=== PATIENT | male | born 1955 | race Caucasian/White ===

== ENCOUNTER 2020-03-01 09:20 | Outpatient (CLI) | payer OTHER, SELFPAY ==
--- NOTE | ~2020-03-01 | XR_ITS ---
XR chest 2V DATE: 03/01/2020 09:39 INDICATION: Dry cough TECHNIQUE: PA and lateral views COMPARISON: 09/10/2018 PA and lateral chest FINDINGS: Normal heart size. Mild aortic unfolding. No hilar or mediastinal enlargement. No pulmonary infiltrate or consolidation, pleural effusion or pulmonary vascular congestion or pneumothorax. Incl uded skeletal structures are unremarkable. IMPRESSION: No active cardiopulmonary disease Reviewed, dictated and finalized at location A.
[2020-03-01 10:46] LABS: Influenza Control Positive
== END 2020-03-01 09:21 | disposition home or self-care (01) ==
PROVIDERS: PCP Internal Medicine; Visit Provider Internal Medicine
DX: R68.89 Other general symptoms and signs (principal); R05 Cough; Z86.19 Personal history of other infectious and parasitic diseases
CPT/HCPCS: 71046; 87804

== ENCOUNTER 2020-03-09 11:05 | Outpatient (CLI) | payer OTHER, SELFPAY ==
--- NOTE | ~2020-03-09 | XR_ITS ---
EXAMINATION: XR chest 2V DATE: 03/09/2020 11:27 INDICATION: Shortness of breath. Cough. TECHNIQUE: Frontal and lateral views of the chest were obtained. COMPARISON: Chest 2 views 03/01/2020 FINDINGS: The chest demonstrates clear lungs without pneumonia, pleural effusion, or pneumothorax. Th e heart size is normal. IMPRESSION: 1. No acute cardiopulmonary disease. Reviewed, dictated and finalized at location A.
[2020-03-09 11:43] LABS: Basophils Percent Auto 0.5 % (0.2-1.2); Eosinophils Absolute Auto 0.2 K/mm3 (0-0.3); Hematocrit 46.5 % (42.0-52.0); Hemoglobin 15.8 g/dL (14.0-18.0); Immature Granulocyte Absolute 0.02 K/mm3 (0.00-0.031); Immature Granulocyte Percent A 0.3 % (0-0.5); Lymphocytes Absolute Auto 1.14 K/mm3 (0.9-3.2); Lymphocytes Percent Auto 15.6 % (18.3-44.2); Mean Corpuscular Hemoglobin 29.1 pg (26-34); Mean Corpuscular Volume 85.6 fl (80-100); Mean Platelet Volume 10.4 fl (7.4-10.4); Monocytes Absolute Auto 0.7 K/mm3 (0.1-0.6); Neutrophils Absolute Auto 5.3 K/mm3 (1.3-6.7); Neutrophils Percent Auto 71.6 % (45.5-73.1); Platelet Count Result 149 k/mm3 (150-375); Red Blood Count 5.43 M/mm3 (4.6-6.20); Red Cell Distribution Width 12.5 % (11.5-14.5); White Blood Count 7.3 K/mm3 (4.5-10.0)
== END 2020-03-09 11:06 | disposition home or self-care (01) ==
PROVIDERS: PCP Internal Medicine; Visit Provider Internal Medicine
DX: R06.02 Shortness of breath (principal); R05 Cough
CPT/HCPCS: 36415; 71046; 85025

== ENCOUNTER → 2021-10-17 07:30 | Outpatient (CLI) | payer OTHER, SELFPAY ==
[2021-10-17 13:21] LABS: Influenza Control Positive
[2021-10-18 13:55] LABS: SARS-CoV-2 RNA PCR Positive
== END ==
PROVIDERS: PCP Internal Medicine; Visit Provider Internal Medicine
DX: U07.1 COVID-19 (principal)
CPT/HCPCS: 87804; C9803; U0003; U0005

== ENCOUNTER → 2021-11-18 10:13 | Outpatient (CLI) | payer OTHER, SELFPAY ==
--- NOTE | ~2021-11-18 | US_ITS ---
EXAMINATION: US thyroid DATE: 11/18/2021 10:45 INDICATION: Nontoxic single thyroid nodule. TECHNIQUE: Multiple ultrasound images of the thyroid were obtained. COMPARISON: None. FINDINGS: The right thyroid lobe measures 3.9 x 1.8 x 1.5 cm. The left thyroid lobe measures 4.4 x 2.0 x 1.4 c m. In the left thyroid lobe, there is a 2.0 cm predominantly solid, hypoechoic, [id number]-hriw-qimw nodu le with smooth margin without echogenic foci (TI-RADS TR4). IMPRESSION: 1. Left thyroid nodule. Ultrasound-guided fine-needle aspiration is recommended. Reviewed, dictated and finalized at location E. RINARY TECHNICIAN ASSISTANT IMPRESSION: 1. Left thyroid nodule. Ultrasound-guided fine-needle aspiration is recommended .
== END ==
PROVIDERS: PCP Internal Medicine; Visit Provider Internal Medicine
DX: E04.1 Nontoxic single thyroid nodule (principal)
CPT/HCPCS: 76536

== ENCOUNTER 2021-12-05 09:05 | Outpatient (CLI) | payer OTHER, SELFPAY ==
--- NOTE | ~2021-12-05 | US_ITS ---
EXAMINATION: US FNA w image guidance DATE: 12/05/2021 10:05 INDICATION: Left thyroid nodule TECHNIQUE: A time-out was performed to verify the patient's name, date of , and procedure to be performed . The procedure and its benefits and risks were discussed with the patient. Risks specifically discus sed included bleeding and infection. The patient understood the risks and agreed to proceed. The neck was prepped and draped in the usual sterile manner. 3 mL 1% lidocaine was used for local anesthesia . 6 passes were made with a 25G needle into the lesion. Appropriate needle location was documented with continuous sonographic guidance. The specimens were passed to the instructional technologist in the room. A sterile bandage was applied. There were no immediate complications. FINDINGS: Grayscale ultrasound images demonstrate biopsy needles advanced into a 1.6 cm solid TI RADS 4 left th yroid nodule. IMPRESSION: 1. Successful ultrasound-guided fine needle aspiration of a 1.6 cm TI RADS 4 left thyroid nodule. Reviewed, dictated and finalized at location A. F INFORMATION SECURITY OFFICER IMPRESSION: 1. Successful ultrasound-guided fine needle aspiration of a 1.6 cm TI RADS 4 l eft thyroid nodule.
== END 2021-12-05 09:06 | disposition home or self-care (01) ==
PROVIDERS: PCP Internal Medicine; Visit Provider Otolaryngology
DX: E04.1 Nontoxic single thyroid nodule (principal)
CPT/HCPCS: 10005; 88173; 88305

== ENCOUNTER → 2022-12-28 10:01 | Outpatient (CLI) | payer MEDICARE, SELFPAY ==
--- NOTE | ~2022-12-28 | XR_ITS ---
Clinical Indication: Cough PA and lateral views of the chest: Comparison: 03/09/2020 Findings: The lungs are clear, without evidence of focal consolidation or pleural effusion. Cardiome diastinal silhouette is within normal limits. Bones and soft tissues are unremarkable. Impression: Normal chest. Reviewed, dictated and finalized at [facility]. Impression: Normal chest.
== END ==
PROVIDERS: PCP Internal Medicine; Visit Provider Internal Medicine
DX: R05.9 Cough, unspecified (principal)
CPT/HCPCS: 71046

== ENCOUNTER 2023-05-11 08:40 | Outpatient (CLI) | payer MEDICARE, SELFPAY ==
--- NOTE | ~2023-05-11 | US_ITS ---
EXAMINATION: US retroperitoneal duplex ltd DATE: 05/11/2023 09:55 INDICATION: Essential/primary hypertension TECHNIQUE: Multiple grayscale, color Doppler, and pulsed Doppler images of the kidneys and renal xena shyanne were obtained. COMPARISON: None. FINDINGS: The aorta peak systolic velocity is 44 cm/s. The right renal artery peak systolic velocity is 98 cm/s in the proximal segment, 208 cm/s in the mid segment, and 86 cm/s in the distal segment. The left re nal artery peak systolic velocity is 52 cm/s in the proximal segment, 69 cm/s in the mid segment, and 108 cm/s in the distal segment. IMPRESSION: 1. Elevated peak systolic velocities in the mid right renal artery consistent with a >50-60% stenosi s. Reviewed, dictated and finalized at location A. IMPRESSION: 1. Elevated peak systolic velocities in the mid right renal artery consistent with a >50-60% stenosis.
== END 2023-05-11 08:41 | disposition home or self-care (01) ==
PROVIDERS: PCP Internal Medicine; Visit Provider Internal Medicine
DX: I10 Essential (primary) hypertension (principal); R93.89 Abnormal findings on diagnostic imaging of other specified body structures
CPT/HCPCS: 93976

== ENCOUNTER → 2023-05-22 09:49 | Outpatient (CLI) | payer MEDICARE, SELFPAY ==
--- NOTE | ~2023-05-22 | CT_ITS ---
EXAMINATION: CTA abdomen DATE: 05/22/2023 10:12 INDICATION: Hypertension. TECHNIQUE: Computed tomographic angiography (CTA) of the abdomen was performed with 100 mL Omnipaque- 350 intravenous contrast. Automated exposure control and iterative reconstruction technique were empl oyed. The dose-length product was 591.91 mGy-cm. Maximum intensity projection 3D-reconstructions of t he aorta and other arteries were constructed by the technologist on a separate workstation. COMPARISON: Ultrasound 05/11/2023, CT abdomen and pelvis 10/21/13 FINDINGS: The visualized portions of the lung bases demonstrate mild atelectasis. No pleural effusion . The heart size is normal. No pericardial effusion. There are cysts in the liver measuring up to 2.0 cm. The gallbladder, spleen, pancreas, and adrenal glands are normal. There are cysts in the kidneys measuring up to 1.0 cm on the left. There is cortical thinning of left kidney. There is a 1.5 cm mas s in left kidney measuring soft tissue attenuation. There are no dilated loops of bowel. There is div erticulosis of the colon without evidence of diverticulitis. No pathologically enlarged lymph nodes. Aortic atherosclerosis is noted. There is no significant stenosis or central canal stenosis, superior mesenteric artery, inferior mesenteric artery, or the renal arteries. There is mild cervical spondyl osis. IMPRESSION: 1. No significant renal artery stenosis. 2. 1.5 cm left kidney mass, which may be a hemorrhagic cyst or less likely a neoplasm. Abdomen CT or MRI without and with contrast is recommended. Reviewed, dictated and finalized at location A. IMPRESSION: 1. No significant renal artery stenosis. 2. 1.5 cm left kidney mass, which may be a hemorrhagic cyst or less likely a ne oplasm. Abdomen CT or MRI without and with contrast is recommended.
[2023-05-22 10:03] LABS: Estimated Glomerular Filt Rate 51
== END ==
PROVIDERS: PCP Internal Medicine; Visit Provider Internal Medicine
DX: I70.1 Atherosclerosis of renal artery (principal)
CPT/HCPCS: 74175; Q9967

== ENCOUNTER → 2023-05-29 08:56 | Outpatient (CLI) | payer MEDICARE, SELFPAY ==
--- NOTE | ~2023-05-29 | CT_ITS ---
EXAMINATION: CT abdomen wo/w con INDICATION: Left kidney mass TECHNIQUE: Computed tomographic images of the abdomen were obtained prior to then following after the administration of 100 cc of Omnipaque 350 intravenous contrast. The dose-length product (DLP) was 12 35.07 mGy-cm. Automated exposure control and iterative reconstruction technique were employed. COMPARISON: 05/22/2023 FINDINGS: Minimal dependent atelectasis is present in the lung bases. The heart size is normal. Cysts of the liver measure up to 2 cm. The spleen, pancreas, gallbladder, and adrenal glands are normal. T here is a 1.7 cm hyperdense, nonenhancing left kidney mass. There is cortical thinning of the left ki dney. Simple cysts of the kidneys measure up to 1 cm on the left. There are no pathologically enlarge d abdominal lymph nodes. No free intraperitoneal gas or evidence of bowel obstruction. IMPRESSION: 1. Hemorrhagic cyst of the left kidney corresponding to the mass and question on recent CT. Reviewed, dictated and finalized at location L. IMPRESSION: 1. Hemorrhagic cyst of the left kidney corresponding to the mass and question o n recent CT.
== END ==
PROVIDERS: PCP Internal Medicine; Visit Provider Internal Medicine
DX: N28.89 Other specified disorders of kidney and ureter (principal); N28.1 Cyst of kidney, acquired
CPT/HCPCS: 74170; Q9967

== ENCOUNTER → 2023-07-06 15:05 | Outpatient (CLI) | payer MEDICARE, SELFPAY ==
--- NOTE | ~2023-07-06 | XR_ITS ---
XR shoulder RT min 2V DATE: 07/06/2023 15:22 INDICATION: Right shoulder TECHNIQUE: 4 views COMPARISON: None FINDINGS: There is mild degenerative change and inferior spurring at the right acromioclavicular join t. No fracture or dislocation, periosteal reaction or bone destruction or abnormal soft tissue calcifica tion. IMPRESSION: Mild degenerative change Reviewed, dictated and finalized at location A. IMPRESSION: Mild degenerative change
== END ==
PROVIDERS: PCP Internal Medicine; Visit Provider Family Medicine
DX: M19.011 Primary osteoarthritis, right shoulder (principal)
CPT/HCPCS: 73030

== ENCOUNTER 2023-08-16 13:32 | Outpatient (CLI) | payer MEDICARE, SELFPAY ==
--- NOTE | ~2023-08-16 | XR_ITS ---
EXAMINATION: XR fl inj shoulder RT - MR/CT DATE: 08/16/2023 14:51 INDICATION: Right shoulder pain TECHNIQUE: A time-out was performed to verify the patient's name, date of , and procedure to b e performed. The procedure including the risks, benefits, and alternatives was discussed with the pat ient. Risks discussed included bleeding and infection. The patient understood the risks and agreed to proceed. The skin overlying the rotator cuff interval of the right glenohumeral joint was prepped a nd draped in usual sterile fashion. Anesthetic was administered with 1% lidocaine subcutaneously. A 22 G needle was advanced under fluoroscopic guidance into the joint. Injection of 2 mL of Omnipaque 240 confirmed intra-articular position of the needle. Subsequently, injectate consisting of 12 mL o f 2:1:1 mixture of sterile saline:Omnipaque 240:1% lidocaine mixed 200:1 with 529 mg/mL Multihance ga dolinium contrast was injected with intra-articular administration confirmed with intermittent fluoro scopy. The needle was removed and the entry site was cleaned and dressed. There were no immediate co mplications. Fluoroscopy exposure time was 0.7 minutes. The total number of images was 129. FINDINGS: Real-time fluoroscopy demonstrates the needle in the right glenohumeral joint. There is a m inimal amount of extravasation into the cephalad margin of the subscapularis tendon at the site of in jection. There is small amount of contrast imbibition into the distal supraspinatus tendon consistent with articular sided tear. See separate MR arthrogram report for further detail. IMPRESSION: 1. Successful right glenohumeral joint injection of dilute gadolinium contrast mixture for subsequent MRI arthrogram which will be dictated separately. . Reviewed, dictated and finalized at location A.
--- NOTE | ~2023-08-16 | MR_ITS ---
EXAMINATION: MR shoulder RT w con DATE: 08/16/2023 15:48 INDICATION: Right shoulder pain TECHNIQUE: Magnetic resonance (MR) arthrogram of the right shoulder was performed following intra-ar ticular gadolinium contrast injection and without intravenous contrast. Details of the glenohumeral j oint injection have been dictated separately. Sequences included axial T2-weighted FS FSE, axial T1- weighted FS FSE, coronal oblique T1-weighted FS FSE, coronal oblique T2-weighted FSE, sagittal T2-jacquelin ghted FS FSE, sagittal T1-weighted FSE, and ABER (abduction external rotation) T1-weighted FS FSE. COMPARISON: Radiographs dated 08/05/2023 FINDINGS: Coracoacromial arch: The acromion undersurface is curved in morphology (type II). The coracoacromial ligament is normal. M ild to moderate acromioclavicular osteoarthritis with mild subarticular cystlike changes at the later al head of the clavicle. Rotator cuff: Moderate supraspinatus and infraspinatus tendinopathy. Contrast fills an intrasubstance tear defect w hich extends 1.8 cm AP at the distal aspect of the infraspinatus and posterior supraspinatus tendons. There is negligible separation of the discontiguous medial and lateral tear margins which are locate d at approximately 5 mm medial to the medial facet footplate of the tendons. The intrasubstance contr ast confirms involvement of the articular surface although a measurable articular sided tear defect i s not identified. There is only minimal intrasubstance contrast seen along the articular side of the tendon on the rotating cine fluoroscopic images taken immediately following the contrast injection see ggesting the articular component to the tear is relatively small. The intrasubstance portion of the t ear appears to involve in places at least two thirds of the tendon thickness. The teres minor tendon is normal. There is mild subscapularis tendinopathy. There is some intrasubstance contrast within the distal tendon. Normal rotator cuff muscle bulk and signal. Biceps tendon, glenoid labrum and glenohumeral cartilage: Long head of the biceps tendon is normal. There is likely chronic degeneration of the posterior gleno id labrum which has been partially replaced by marginal osteophytes at the periphery of the glenoid a nd labrum. There is additional degenerative tearing of the anterosuperior glenoid labrum which appear s small with frayed margins. There is mild partial-thickness cartilage loss with smooth chondral surf demetria along the anterosuperior and inferomedial aspect of the humeral head. Bones and other: Prominent low signal intensity bone island at the central neck of the glenoid. Otherwise normal marro w signal with no edema, fracture or abnormal marrow replacing process. Mild increased fluid signal wi thout contrast enhancement in the subacromial/subdeltoid bursa consistent with minimal bursitis. IMPRESSION: 1. Moderate supraspinatus and infraspinatus tendinopathy with primarily intrasubstance tear extending across the distal supraspinatus and infraspinatus tendons which enhances with contrast consistent wi th the presence of a small otherwise occult articular sided tear/perforation. 2. Mild glenohumeral osteoarthritis with posterior and anterosuperior labral degeneration. 3. Mild to moderate acromioclavicular osteoarthritis with minimal underlying subacromial/subdeltoid b ursitis. Reviewed, dictated and finalized at location A. IMPRESSION: 1. Moderate supraspinatus and infraspinatus tendinopathy with primarily intrasu bstance tear extending across the distal supraspinatus and infraspinatus tendon s which enhances with contrast consistent with the presence of a small otherwis e occult articular sided tear/perforation. 2. Mild glenohumeral osteoarthritis with posterior and anterosuperior labral de
== END 2023-08-16 13:33 | disposition home or self-care (01) ==
PROVIDERS: PCP Internal Medicine; Visit Provider Family Medicine
DX: M19.011 Primary osteoarthritis, right shoulder (principal)
CPT/HCPCS: 23350; 73222; 77002; A9577; Q9966

== ENCOUNTER 2023-12-27 09:05 | Outpatient (CLI) | payer MEDICARE, SELFPAY ==
--- NOTE | 2023-12-27 09:11 | ECG_ITS ---
Measurements Intervals [place] Rate: 52 P: 57 MO: 175 QRS: 44 QRSD: 102 T: 18 QT: 422 QTc: 395 Interpretive Statements SINUS BRADYCARDIA BORDERLINE ECG NO PREVIOUS ECG AVAILABLE FOR COMPARISON Electronically Signed On 12-27-2023 9:36:35 CDT by Oziel Ibarra D.O.
[2023-12-27 09:37] LABS: Anion Gap 3 mmol/L (8-16); Blood Urea Nitrogen 18 mg/dL (9-20); Calcium 9.5 mg/dL (8.4-10.2); Carbon Dioxide 30 mmol/L (22-30); Chloride 105 mmol/L (98-107); Estimated Glomerular Filt Rate > 60; Glucose 103 mg/dL (65-110); Potassium 4.4 mmol/L (3.4-5.0); Sodium 138 mmol/L (137-145)
== END 2023-12-27 09:06 | disposition home or self-care (01) ==
LOC: ANHSURGERY 09:07
PROVIDERS: Anesthesiology; PCP Internal Medicine; Visit Provider Orthopaedic Surgery
DX: Z01.818 Encounter for other preprocedural examination (principal); Z79.899 Other long term (current) drug therapy; I10 Essential (primary) hypertension; R00.1 Bradycardia, unspecified
CPT/HCPCS: 36415; 80048; 93005

== ENCOUNTER 2024-01-03 00:11 | Day surgery (SDC) | payer MEDICARE, SELFPAY ==
[2023-12-25 08:22] VITALS: BMI 29.5
--- NOTE | 2023-12-25 08:33 | PC.NURSE ---
PRE-OP INSTRUCTIONS, PLEASE READ CAREFULLY Report to the Outpatient Waiting Room, entrance under the green pavilion located off [facility], at time _0830_ on date _01/03/24_. Planned Procedure Time: _1030_. Time changes happen often and if your time is changed the preop area will call you the afternoon before. - You and your visitor will be asked to self-screen and do not enter if you have any COVID symptoms. - A mask is optional within the hospital at this time. Patients may have clear liquids (water, carbonated beverages, clear teas, apple juice) until 3 hours prior to surgery with a maximum of 20 ounces. - No food from midnight until time of surgery Take the following medications with a SIP of water the morning of surgery: _TRAMADOL IF NEEDED_ DO NOT STOP ANY OF YOUR OTHER PRESCRIPTION MEDICATIONS PRIOR TO SURGERY ?EXCEPT THE FOLLOWING Medications to discontinue per DR. PINEDA/PATIENT - _ASPIRIN, VITAMINS, SUPPLEMENTS 7 DAYS PRIOR TO SURGERY, Date to take last dose 12/26/23_ Please no make-up, nail bahraini, hairspray, perfume, deodorant, or body powder the day of surgery. No jewelry (including any body piercings) or valuables the day of surgery, leave them at home. Please take a shower or bath the night before, or the morning of, surgery with an antibacterial soap. Wear comfortable, loose fitting clothing. - Jewelry must be removed prior to entering the operating room. Rings and piercings that are not removed may be cut off. - The hospital will not accept responsibility for valuables. - Please leave all valuables, including medications, at home the day of surgery. If you are going home after surgery, a licensed garbage collector driver must drive you home. - NO public transportation without another adult if you receive anesthesia. - We recommend that an adult stay with you for 24 hours following discharge. - We also recommend that you do not drive, make important decision, drink alcoholic beverages, or take any drugs that were not prescribed by your health care provider for at least 24 hours after your discharge time. Follow any additional instructions given to you from your surgeon. If you or anyone in your household have experienced Covid symptoms in the past week, please notify your surgeon or the nurse liaison at the phone number below for possible testing. Telephone instructions given to _PATIENT_and asked if any additional questions and then verbalized understanding. Patient advised to call surgeon office or pre surgery nurse liaison [phone] if any additional questions.
--- NOTE | 2024-01-03 07:43 | WPDHPUPDATE1 ---
History and Physical Update Update Date/Time: 01/03/24 07:43 History and Physical has been reviewed, including an updated exam of the patient. There are NO changes in the patient's condition. Risks, benefits, and alternatives have been discussed and questions answered. Patient agrees to proceed with procedure.
[2024-01-03 08:45] VITALS: BP 168/93; PULSE 59; RESP 18; TEMP 36.4; O2SAT 98
[2024-01-03] MEDS: ACETAMINOPHEN 500 MG TABLET 1000 MG PO (09:28)
[2024-01-03] MEDS: KETOROLAC 15 MG/ML VIAL (*BKC) IV PUSH (09:28)
--- NOTE | 2024-01-03 09:49 | WPDANESEPPF ---
Anes - Initial Pre Proc Eval Procedure: Operation Date: 01/03/24 10:30 Proposed Procedures p Right Shoulder Arthroscopic Rotator Cuff Repair with Subacromial Decompression - Mateusz Chappell MD Date/Time: 01/03/24 09:49 Surgeon: Mateusz Chappell MD Pre Op Diagnosis: complete right rotator cuff tear Patient Data Age: 68 Gender: M Height: 1.88 m Weight: 108 kg Last Vital Signs Temp 36.4 C L 01/03/24 08:45 Pulse 59 L 01/03/24 08:45 Resp 18 01/03/24 08:45 BP 168/93 H 01/03/24 08:45 Pulse Ox 98 01/03/24 08:45 O2 Del Method Room Air 01/03/24 08:45 Allergies Allergy/AdvReac Type Severity Reaction Status Date / Time Sulfa (Sulfonamide Allergy Unknown Flushing Verified 12/25/23 08:14 Antibiotics) Home Medications Medication Instructions Recorded Confirmed Type aspirin 81 mg tablet,delayed 162 mg PO DAILY 02/06/20 01/03/24 History release (Adult Low Dose Aspirin) loratadine 10 mg tablet (Claritin) 10 mg PO DAILY 02/06/20 01/03/24 History niacin 500 mg capsule,extended 500 mg PO HS 02/06/20 01/03/24 History release omega-3 fatty acids 1,000 mg 2,000 mg PO DAILY 02/06/20 01/03/24 History capsule (Fish Oil Concentrate) cholecalciferol (vitamin D3) 25 25 mcg PO DAILY 06/25/20 01/03/24 History mcg (1,000 unit) capsule finasteride 5 mg tablet 5 mg PO DAILY 02/08/22 01/03/24 History vitamin E (dl, acetate) 450 mg 900 mg PO BID 05/01/23 01/03/24 History (1,000 unit) capsule metoprolol succinate 50 mg See Rx Instructions .Route 08/16/23 01/03/24 Rx tablet,extended release 24 hr .COMPLEX #90 tabs tramadol 50 mg tablet 50 mg PO Q4-6H PRN pain #120 tabs 09/14/23 01/03/24 Rx valsartan 320 See Rx Instructions .Route 10/04/23 01/03/24 Rx mg-hydrochlorothiazide 12.5 mg .COMPLEX #90 tabs tablet rosuvastatin 20 mg tablet See Rx Instructions .Route 10/18/23 01/03/24 Rx .COMPLEX #90 tabs sildenafil 25 mg tablet 25 mg PO DAILY PRN Erectile 12/25/23 01/03/24 History Dysfunction oxycodone-acetaminophen 5 mg-325 1 - 2 tablet PO Q4-6H PRN pain #30 01/03/24 Rx mg tablet tabs Patient hx anesthesia problems: none Family hx anesthesia problems: none Results Review: All pre-operative results and documents have been reviewed as part of the pre-operative evaluation. [facility] Past Medical History Medical History Accelerated hypertension Basal cell carcinoma Benign essential hypertension BMI 28.0-28.9,adult BMI 29.0-29.9,adult BPH (benign prostatic hyperplasia) Chest wall pain Colon cancer screening Cough Elevated homocysteine Encounter for Medicare annual wellness exam Encounter for preventive health examination Encounter for routine adult health examination with abnormal findings Encounter for routine adult health examination without abnormal findings Follow up Frequent headaches Hx of colonic polyps Hx of deep venous thrombosis Hyperlipidemia Hypersomnolence Jaw pain Light headedness Lipoma Melanoma On usp drug therapy ROBERT (obstructive sleep apnea) ROBERT on CPAP Parotiditis Pruritus ani Renal mass, left Right inguinal hernia Right shoulder pain Right wrist pain SOB (shortness of breath) Tenosynovitis of right wrist Vitamin D deficiency Surgical History Surgical History H/O local excision of skin lesion skin cancer lesions removed. S/P right inguinal hernia repair Family History Family History Father Hypertension Cerebrovascular accident Carcinoma of colon Family history of lung disease Family history of coronary artery disease Mother Family history of Alzheimer's disease Family history of macular degeneration Social History Social History Smoking status: Never smoker Second hand tobacco smoke exposure: No Alcohol
--- NOTE | 2024-01-03 10:00 | WPDANESPNB ---
Anes - Peripheral Nerve Block Date/Time: 01/03/24 10:00 I have discussed with the patient/family/POA the placement of a peripheral nerve block for post-operative pain management, including associated risks, benefits, complications, and side effects. Alternative methods of post-operative analgesia were detailed. Questions were solicited and answers provided to the satisfaction of the patient/family/POA. Time-Out: A pre-procedural Time-Out was completed immediately before starting the procedure and confirmed: Patient Identification, Site, Procedure, Patient Position and the Availability of Requisite Equipment. Clinical Indications: Acute post-operative pain management requested by the operative surgeon. Nerve Block Insertion Note Anes-nerve block: interscalene right Patient position: supine Skin prep: chlorhexidine Needle: 22 gauge, stimulating, insulated echogenic needle. Needle length: 50 mm Technique: ultrasound Injectate: bupivacaine 0.5% with epi 5 mcg/ml (30cc) and dexamethasone (mg) (4) Observations: tolerated well Complications: none Procedure start time:: 955 Procedure end time:: 1001
[2024-01-03] MEDS: ceFAZolin SODIUM 1 GM VIAL 2 GM IV PUSH (10:09)
[2024-01-03] MEDS: EPINEPHrine HCL INJ 1 MG/ML AMPUL 3 MG IRRIGATION (12:00)
[2024-01-03 12:16] VITALS: BP 130/86; PULSE 52; RESP 16; TEMP 36.3; O2SAT 100
[2024-01-03] MEDS: LACTATED RINGERS 1,000 ML 30 ML IV CONT ×2 (12:16)
[2024-01-03 12:30] VITALS: BP 122/65; PULSE 59; RESP 19; O2SAT 98
[2024-01-03 12:45] VITALS: BP 112/78; PULSE 53; RESP 19; O2SAT 98
[2024-01-03 12:59] VITALS: BP 120/72; PULSE 51; RESP 19
--- NOTE | 2024-01-03 13:16 | W.PM.PROC2 ---
Procedure Note - Detailed Date of Procedure 01/03/24 Pre-op Diagnosis Complete right rotator cuff tear Post-op Diagnosis Other (1. Rotator cuff tear 2. Subacromial impingement ) Procedure Performed Right shoulder 1. Arthroscopic rotator cuff repair 2. Arthroscopic subacromial decompression Surgeon Mateusz Chappell MD Barrel Straightener Kaitlin Jhaveri PA-C Anesthesia General and Regional ( interscalene block) Findings High-grade tendinosis and high-grade partial-thickness articular tear noted on MRI. Similar findings confirmed arthroscopically. The intact bursal fibers were thin approximately 20% of the entire tendon thickness. The tendon demonstrated a trampoline affect due to attenuation and thinning. It was elected to complete the tear at its central portion and repair the tendon back to the footprint with a double row anchor repair. A medial row all suture anchor was inserted at the footprint. Margin convergence suturing combined with horizontal mattress sutures were all brought to a lateral row SwiveLock. Acromioplasty performed as the subacromial space was quite tight. Bursectomy performed. The articular cartilage and glenohumeral joint appeared normal. Description of Procedure Preoperative antibiotics were given. An interscalene block was administered in the preoperative area. The patient was bought brought to the operating room. A general anesthetic was administered. The patient was carefully positioned in the beach chair position. The head and neck were carefully positioned. The non operative extremity was also carefully positioned. The shoulder was prepped and draped in the usual sterile fashion. Examination was performed. Standard posterior and anterior arthroscopic portals were established. Inflow achieved with the arthroscopic pump using saline and epinephrine. The glenohumeral joint was carefully inspected. The articular cartilage was healthy. The labrum showed only minimal fraying. The superior labrum and biceps was normal. The subscapularis had very minimal fraying. The supraspinatus had high-grade articular tearing near the posterior supraspinatus. This was estimated to about 75%. The area was marked with a PDS suture. Attention was turned to the subacromial space. A complete bursectomy was performed. The tear area was very thin and it was elected to complete the tear and repair back to the humeral rotator cuff footprint. Light debridement of the footprint and of the degenerative rotator cuff tissue was performed with the arthroscopic shaver. The remaining tissue was quite good and there was no retraction. The tear was repaired without excess tension. The acromioplasty was performed with the arthroscopic bur. At this point the all suture rotator cuff anchor was placed at the center of the rotator cuff footprint. Two sutures were placed anterior and posterior for margin convergence. Two suture limbs were placed medially for horizontal mattress rip stop configuration. The sutures were inserted laterally with a SwiveLock anchor. The arthroscopic instruments were removed. The wounds were closed with 4-0 Monocryl subcuticular suture and steri strips. There were no complications. A sling was applied and the patient brought to the recovery room. Physician recruitment assistant, Kaitlin Jhaveri PA-C, required for surgery; including patient positioning, draping, arthroscopic camera operation, maintaining instrument position, suture retrieval, wound closure, and dressing and sling placement. Implants Arthrex all suture rotator cuff double loaded anchor. 4.5 mm Arthrex SwiveLock anchor. Estimated Blood Loss 20 Pathology None sent Complications No immediate complications Condition Stable Disposition PACU [facility] Billing Surgery - Charge Forward: Surgery Billing
[2024-01-03 13:29] VITALS: BP 140/74; PULSE 55; RESP 19
== END 2024-01-03 13:55 | disposition home or self-care (01) ==
PROVIDERS: PCP Internal Medicine; Visit Provider Orthopaedic Surgery
PROC: (CPT 29805; principal; 2024-01-03 10:30)
DX: M75.121 Complete rotator cuff tear or rupture of right shoulder, not specified as traumatic (principal); M67.813 Other specified disorders of tendon, right shoulder; I10 Essential (primary) hypertension; E78.5 Hyperlipidemia, unspecified; E55.9 Vitamin D deficiency, unspecified; N40.0 Benign prostatic hyperplasia without lower urinary tract symptoms; G47.33 Obstructive sleep apnea (adult) (pediatric); G89.18 Other acute postprocedural pain; Z79.82 Long term (current) use of aspirin; Z79.891 Long term (current) use of opiate analgesic; Z99.89 Dependence on other enabling machines and devices; Z98.890 Other specified postprocedural states; Z86.018 Personal history of other benign neoplasm; Z85.828 Personal history of other malignant neoplasm of skin; Z86.010 Personal history of colon polyps; Z86.718 Personal history of other venous thrombosis and embolism; Z85.820 Personal history of malignant melanoma of skin; Z82.49 Family history of ischemic heart disease and other diseases of the circulatory system; Z80.0 Family history of malignant neoplasm of digestive organs
CPT/HCPCS: 64415; 29827; 29826; 36415; 80048; 93005; A4565; A9270; C1713; J0171; J0690; J1100; J1596; J1885; J2250; J2371; J2405; J2704; J2710; J7120

== ENCOUNTER 2025-04-07 14:47 | Outpatient (CLI) | payer MEDICARE, SELFPAY ==
--- NOTE | ~2025-04-07 | XR_ITS ---
EXAM/ PROCEDURE: XR lumbar spine min 4V - 04/07/2025 14:52 CDT HISTORY: 69 years old Male with R20.0 - Anesthesia of skin COMPARISON: None available TECHNIQUE: Three view(s) FINDINGS/ IMPRESSION: There are no fractures or dislocations.Multilevel degenerative changes are seen. Dextroscoliosis is n oted. Reviewed, dictated and finalized at location A.
== END 2025-04-07 14:48 | disposition home or self-care (01) ==
LOC: MICIMG 14:49
PROVIDERS: PCP Internal Medicine; Visit Provider Internal Medicine
DX: R20.0 Anesthesia of skin (principal); R20.2 Paresthesia of skin
CPT/HCPCS: 72110

== ENCOUNTER 2025-05-06 13:45 | Outpatient (CLI) | payer MEDICARE, SELFPAY ==
--- NOTE | ~2025-05-06 | XR_ITS ---
EXAM/ PROCEDURE: XR hand LT min 3V - 05/06/2025 14:00 CDT HISTORY: 69 years old Male with M18.12 - Unilateral primary osteoarthritis of first carpo... COMPARISON: None available TECHNIQUE: Three view(s) FINDINGS/ IMPRESSION: There are no fractures or dislocations.Joint space narrowing, subchondral sclerosis, subchondral cyst formation and osteophyte formation, compatible with mild osteoarthritis. Reviewed, dictated and finalized at location A.
--- OUTSIDE RECORDS SUMMARY | 2025-05-06 13:49 | XMS_ITS ---
Author Name ARIEL ANTHONY Address [address] [place] [address] Phone [facility] Address [address] [place] [address] Phone Care Team Providers Care Jet Dyeing Machine Tender Name Role Phone DO ARIEL ANTHONY Unavailable ALLERGIES, ADVERSE REACTIONS AND ALERTS Allergy Name Allergy Date Allergy Status Allergy Severity Allergy Reaction Sulfa (Sulfonamides), [Snomed: [id number]] 05/15/2017 Current MEDICATIONS RxNorm Brand Name Prescription Ordered Value Order Unit Start Date Date Status Fill Status Indications 922615 rosuvast atin 20 mg tablet SIG: rosuvastatin 20 mg oral tablet, 30 days, Dispense #30 Tablet, 0 RefillsDirecti ons: Take 1 oral tablet once a day 30 tablet 2021 Historic [id number] metoprol ol succinat e 25 mg tablet extended release 24 hr SIG: metoprolol succinate 25 mg oral tablet extended release 24 hr, 30 days, Dispense #30 Tablet, 0 RefillsDirecti ons: Take 1 oral tablet once a day 30 tablet extended release 24 hr 2021 Historic [id number] lisinopr il 40 mg tablet SIG: lisinopril 40 mg oral tablet, 30 days, Dispense #30 Tablet, 0 RefillsDirecti ons: Take 1 oral tablet once a day 30 tablet 2021 Historic 707895 aspirin 81 mg tablet,d elayed release (DR/EC) SIG: aspirin 81 mg oral tablet,delayed release (DR/EC), 30 days, Dispense #60 Tablet, 0 RefillsDirecti ons: Take 1 tablet twice a day 60 tablet,d elayed release (DR/EC) 2021 Historic Fish Oil 1,000 mg (120 mg-180 mg) capsule SIG: Fish Oil 1,000 mg (120 mg-180 mg) oral capsule, 30 days, Dispense #60 Capsule, 0 RefillsDirecti ons: Take 1 oral capsule twice a day 60 capsule 2021 Historic [id number] loratadi ne 10 mg tablet,d isintegr ating SIG: loratadine 10 mg oral tablet,disinte grating, 30 days, Dispense #30 Tablet, 0 RefillsDirecti ons: Take 1 oral tablet once a day 30 tablet,d isintegr ating 2021 Current 189308 niacin (inosito l niacinat e) 500 mg capsule SIG: niacin (inositol niacinate) 500 mg oral capsule, 30 days, Dispense #30 Capsule, 0 RefillsDirecti ons: Take 1 oral capsule once a day 30 capsule 2021 Current 765458 Vitamin D3 25 mcg (1,000 unit) tablet SIG: Vitamin D3 25 mcg (1,000 unit) oral tablet, 30 days, Dispense #30 Tablet, 0 RefillsDirecti ons: Take 1 oral tablet once a day 30 tablet 2021 Current 036475 rosuvast atin 20 mg tablet SIG: rosuvastatin 20 mg oral tablet, 30 days, Dispense #30 Tablet, 0 RefillsDirecti ons: Take 1 oral tablet once a day 30 tablet 2021 Current 906563 metoprol ol succinat e 25 mg tablet extended release 24 hr SIG: metoprolol succinate 25 mg oral tablet extended release 24 hr, 30 days, Dispense #30 Tablet, 0 RefillsDirecti ons: Take 1 oral tablet once a day 30 tablet extended release 24 hr 2021 Current 377084 lisinopr il 40 mg tablet SIG: lisinopril 40 mg oral tablet, 30 days, Dispense #30 Tablet, 0 RefillsDirecti ons: Take 1 oral tablet once a day 30 tablet 2021 Current 042445 aspirin 81 mg tablet,d elayed release (DR/EC) SIG: aspirin 81 mg oral tablet,delayed release (DR/EC), 30 days, Dispense #60 Tablet, 0 RefillsDirecti ons: Take 1 tablet twice a day 60 tablet,d elayed release (DR/EC) 2021 Current Fish Oil 1,000 mg (120 mg-180 mg) capsule SIG: Fish Oil 1,000 mg (120 mg-180 mg) oral capsule, 30 days, Dispense #60 Capsule, 0 RefillsDirecti ons: Take 1 oral capsule twice a day 60 capsule 2021 Current 043959 methocar bamol 500 mg tablet SIG: methocarbamol 500 mg oral tablet, 30 days, Dispense #90 Tablet, 0 RefillsDirecti ons: take 1-3 tablets three times daily 90 tablet 2022 Current PROBLEMS Problem Code Problem Description Problem Status Problem Da te Problem End Date M54.17-RADICULOPATHY, LUMBOSACRAL REGION RADICULOPATHY, LUMBOSACRAL REGION Chronic 10/27/2021 M41.86-OTHER FORMS SCOLIOSIS LUMBAR REGION OTHER FORMS SCOLIOSIS LUMBAR REGION Chronic 12/28/2021 M25.511-PAIN IN RIGHT SHOULDER PAIN IN RIGHT SHOULDER Chronic 06/14/2023 S46.011D-STRN MSC TEND ROT CUFF RT SHLDR SUB STRN MSC TEND ROT CUFF RT SHLDR SUB Chronic 06/14/2023 M79.671-PAIN IN RIGHT FOOT PAIN IN RIGHT FOOT Chronic 08/25/2023 PROCEDURES Procedure Description Date Notes NO PROCEDURES PERFORMED ASSESSMENTS Assessment None PLAN OF TREATMENT Assessment Planned Activity LOINC Planned Austyn e None CONSULTATION NOTE Note Author Date None HISTORY AND PHYSICAL NOTE Note Author Date None PROGRESS NOTE Note Author Date None DISCHARGE SUMMARY Note Author Date None CHIEF COMPLAINT AND REASON FOR VISIT FUNCTIONAL STATUS Functional or Cognitive Find ing None MENTAL STATUS Cognitive Finding None ENCOUNTERS Encounter Type Provider Diagnoses Start Date Location Disc harged to None SOCIAL HISTORY Social Status Observation Never Smoker Sex: Male CARE TEAM INFORMATION Jet Dyeing Machine Tender Provider ID Role Location Phone ARIEL ANTHONY [phone] PHYSICIAN [address] [place] [address] INSURANCE PROVIDERS Payer Name Policy type / Coverage type Covered libertarian ID Policy [place] [employer] MEDICARE ADVANTAGE Private Health Insurance [id number] SELF
--- OUTSIDE RECORDS SUMMARY | 2025-05-06 13:49 | XMS_ITS | Encounter Summary ---
Author Organization [facility] Address [address] [place] [address] Care Team Providers Care Stationary Fireman Name Role Phone Hernan Michel MD Primary Care Provider [phone] Encounter Details Date Type Department Care Team (Late st Contact Info) Description 10/20/2020 Lab Requisition [facility] Care DermPath Lab [address] [place] [id number] Gonzalo Tucker MD [address] [facility] [place] [address] Social History Tobacco Use Types Packs/Day Years Used Date Smoking Tobacco: Never Smokeless Tobacco: Never Alcohol Use Standard Drinks/Week Comments Yes 7 (1 standard drink = 0.6 oz pur e alcohol) 1-2 each day AUDIT-C Answer Date Recorded Frequency of Alcohol Consumption 4 or more times a week 09/19/2019 Average Number of Drinks 1 or 2 019 Frequency of Binge Drinking Not on file 03/2019 Sex and Gender Information Value Date Recorded Sex Assigned at Not on file Legal Sex Male 5:59 PM CDT Gender Identity Not on file Sexual Orientation Not on file documented as of this encounter Plan of Treatment Not on file documented as of this encounter Procedures Procedure Name Priority Date/Time Associated Diagnosis Comments DERMATOPATHOLOGY Routine 10/19/2020 12:0 0 AM EXECUTIVE OFFICE MANAGER documented in this encounter Results * DERMATOPATHOLOGY (10/19/2020 12:00 AM EXECUTIVE OFFICE MANAGER) Case Report Dermatopathology Report Case: [id number] Authorizing Provider: Gonzalo Tucker MD Collected: 10/19/2020 12:00 AM Ordering Location: [facility] Derm[facility] Lab Received: 10/20/2020 06:05 AM Pathologist: Dolly Aleman MD Specimen: Skin, left lateral scapula 4:15 PM [facility] DERMATOPATHOLOGY LABORATORY Final Diagnosis Specimen A. 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 Path # [id number]. 4:15 PM [facility] DERMATOPATHOLOGY LABORATORY Gross Description Specimen A: Received is one formalin filled container labeled with the patient's name and designated left lateral scapula. The specimen consists of a shave biopsy measuring 4l2p9dg. Jar 0. 4:15 PM [facility] DERMATOPATHOLOGY LABORATORY Microscopic Description Specimen A. SKIN, left lateral scapula: There is a proliferation melanocytes distributed in an irregular pattern singly and in nests at all levels of the epidermis. In the dermis there are irregular nests and single scattered melanocytes. Melanocytes are highlighted with immunohistochemical staining for MART-1/Melan-A. Melanocytes demonstrate zonal positivity with immunohistochemical staining for HMB-45. Additional deeper sections were obtained and reviewed. This lesion is present at the lateral margin of the specimen. 4:15 PM [facility] DERMATOPATHOLOGY LABORATORY Disclaimer An external and internal positive and negative controls are appropriate for the histochemical, immunohistochemical and immunofluorescence stain(s) in this case (if any), except where stated explicitly. The performance characteristics of the stain(s) cited in this report were developed and its performance characteristic determined by the Dermatopathology Laboratory at [facility], directed by Dr. Cristhian Aleman. These tests need not be, and therefore are not, approved by the [place] Food and Drug Administration. The tests are used for clinical purposes. Billing Codes Specimen Charges Stain Charges 59645 1 15819 08773 1 1 4:15 PM [facility] DERMATOPATHOLOGY LABORATORY Embedded Images 1 4:15 PM [facility] DERMATOPATHOLOGY LABORATORY Synoptic Report MELANOMA OF THE SKIN: Biopsy (MELANOMA OF THE SKIN: BIOPSY - All Specimens) 8th Edition - Protocol posted: 02/11/2020 SPECIMEN Procedure: Biopsy, shave Specimen Laterality: Left TUMOR Tumor Site: Skin of trunk: lateral scapula Histologic Type: Superficial spreading melanoma (low-cumulative sun damage (CSD) melanoma) Maximum Tumor (Breslow) Thickness (Millimeters): At least: 0.4 mm : Tumor is present at the surgical margin; therefore, the final depth may exceed the current one. Ulceration: Not identified Anatomic (Prudencio) Level: At least level: III : Tumor is present at the surgical margin; therefore, the final depth may exceed the current one. Mitotic Rate: None identified Microsatellite(s): Not identified Lymphovascular Invasion: Not identified Neurotropism: Not identified Tumor-Infiltrating Lymphocytes: Present, nonbrisk Tumor Regression: Present MARGINS: Peripheral Margins: Negative for invasive melanoma Status of Melanoma in situ at Peripheral Margins: Melanoma in situ present at margin Deep Margin: Negative for invasive melanoma Status of Melanoma in situ at Deep Margin: Negative for melanoma in situ PATHOLOGIC STAGE CLASSIFICATION (pTNM, AJCC 8th Edition): Primary Tumor (pT): pT1a Comment(s) Comment(s): This case was also reviewed by Dr. Ruby Randhawa, who agrees. 1 4:15 PM [facility] DERMATOPATHOLOGY LABORATORY Pathology/Cytolog y TISSUE SPECIMEN FROM SKIN / Unknown 10/19/2020 10/20/2020 6:05 AM EXECUTIVE OFFICE MANAGER us Gonzalo Tucker MD LAB - PATHOLOGY/CYTOLOGY ORDER SHERRELL Final Result DERMATOPATHOLOGY LABORATORY [facility] - Department of Dermatology [facility] Medicine [address] [place] [address], [address] [phone] documented in this encounter Visit Diagnoses Not on filedocumented in this encounter Care Teams Stationary Fireman Relationship Specialty Start Date End Date Hernan Michel MD [address] [place] [address] PCP - General 01/29/18 documented as of this encounter
--- OUTSIDE RECORDS SUMMARY | 2025-05-06 13:49 | XMS_ITS | Encounter Summary ---
Author Organization [facility] Address [address] [place] [address] Care Team Providers Care Metal Casting Trades Worker Name Role Phone Hernan Michel MD Primary Care Provider [phone] Encounter Details Date Type Department Care Team (Late st Contact Info) Description 11/12/2020 Lab Requisition [facility] Care DermPath Lab [address] [place] [phone] Gonzalo Tucker MD [address] [facility] [place] [address] Social History Tobacco Use Types Packs/Day Years [...] Priority Date/Time Associated Diagnosis Comments DERMATOPATHOLOGY Routine 11/10/2020 3:33 AM MACHINE CLOTHING MAN documented in this encounter Results * DERMATOPATHOLOGY (11/10/2020 3:33 AM MACHINE CLOTHING MAN) Case Report Dermatopathology Report Case: [id number] Authorizing Provider: Gonzalo Tucker MD Collected: 11/10/2020 03:33 AM Ordering Location: [facility] DermPath Lab Received: 11/12/2020 06:26 AM Pathologist: Anahi Morgan MD Specimen: Skin, left lateral scapula 6:17 PM [facility] DERMATOPATHOLOGY LABORATORY Final Diagnosis Specimen A. 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 Check margins. Path # [id number]. 6:17 PM [facility] DERMATOPATHOLOGY LABORATORY Gross Description Specimen A: Received is one formalin filled container labeled with the patient's name and designated left lateral scapula. The specimen consists of a non-oriented ellipse of skin measuring [id number]. The epidermal surface consists of a centrally located 8x8mm previous biopsy site. The margin is inked green. The 12 o'clock and 6 o'clock tips are submitted in cassette 1. The remainder of the ellipse is serially sectioned and submitted in cassettes 2-4. Jar 0. 6:17 PM [facility] DERMATOPATHOLOGY LABORATORY Microscopic Description Specimen A. SKIN, left lateral scapula: There are fibroblasts and collagen bundles oriented parallel to the skin surface. There are elongated blood vessels, some of which are oriented perpendicular to the skin surface. No residual melanoma is identified. 6:17 PM [facility] DERMATOPATHOLOGY LABORATORY Disclaimer An external and internal positive and negative controls are appropriate for the histochemical, immunohistochemical and immunofluorescence stain(s) in this case (if any), except where stated explicitly. The performance characteristics of the stain(s) cited in this report were developed and its performance characteristic determined by the Dermatopathology Laboratory at [facility], directed by Dr. Cristhian Aleman. These tests need not be, and therefore are not, approved by the [place] Food and Drug Administration. The tests are used for clinical purposes. Billing Codes Specimen Charges Stain Charges 10176 1 6:17 PM [facility] DERMATOPATHOLOGY LABORATORY Embedded Images 02/01/202 1 6:17 PM MACHINE CLOTHING MAN DERMATOPATHOLOGY LABORATORY Pathology/Cytolo gy TISSUE SPECIMEN FROM SKIN / Unknown 11/10/2020 3:33 AM MACHINE CLOTHING MAN 11/12/2020 6:26 AM MACHINE CLOTHING MAN us Gonzalo Tucker MD LAB - PATHOLOGY/CYTOLOGY ORDER SHERRELL Final Result DERMATOPATHOLOGY LABORATORY [facility] - Department of Dermatology [facility] Special[facility] Medicine [address] [place] [address], [address] [phone] documented in this encounter Visit Diagnoses Not on filedocumented in this encounter Care Teams Metal Casting Trades Worker Relationship Specialty Start Date End Date Hernan Michel MD [address] [place] [address] PCP - General 01/29/18 documented as of this encounter
--- OUTSIDE RECORDS SUMMARY | 2025-05-06 13:49 | XMS_ITS | Encounter Summary ---
Author Organization [facility] Address [address] [place] [address] Care Team Providers Care Otr Hazmat Company Driver Name Role Phone Hernan Michel MD Primary Care Provider [phone] Encounter Details Date Type Department Care Team (Late st Contact Info) Description 11/18/2020 Lab Requisition [facility] Care DermPath Lab [address] [place] [phone] Gonzalo Tucker MD [address] [place] [address] Social History Tobacco Use Types Packs/Day Years [...] Priority Date/Time Associated Diagnosis Comments DERMATOPATHOLOGY Routine 11/17/2020 3:33 AM BADGER DISTILLER OPERATOR documented in this encounter Results * DERMATOPATHOLOGY (11/17/2020 3:33 AM BADGER DISTILLER OPERATOR) Case Report Dermatopathology Report Case: [id number] Authorizing Provider: Gonzalo Tucker MD Collected: 11/17/2020 03:33 AM Ordering Location: [facility] DermPath Lab Received: 11/18/2020 05:31 AM Pathologist: Ruby Randhawa MD Specimen: Skin, mid back 6:33 PM [facility] DERMATOPATHOLOGY LABORATORY Final Diagnosis Specimen A. SKIN, mid back: EPIDERMOID CYST WITH EVIDENCE OF RUPTURE (L72.0) PRESENT AT MARGIN 6:33 PM [facility] DERMATOPATHOLOGY LABORATORY at [address] [facility] Clinical History E cyst. Path # [id number]. 6:33 PM [facility] DERMATOPATHOLOGY LABORATORY Gross Description Specimen A: Received is one formalin filled container labeled with the patient's name and designated mid back. The specimen consists of a [id number] excision, bisected. The margin is inked green. Jar 0. 6:33 PM [facility] DERMATOPATHOLOGY LABORATORY Microscopic Description Specimen A. SKIN, mid back: Within the dermis, there is a space lined by epithelium that resembles normal epidermis and the infundibular portion of the hair follicle. Surrounding this is an infiltrate with neutrophils, histiocytes, and multinucleated giant cells. This lesion is present at the margin of the specimen. 6:33 PM [facility] DERMATOPATHOLOGY LABORATORY Disclaimer An external and internal positive and negative controls are appropriate for the histochemical, immunohistochemical and immunofluorescence stain(s) in this case (if any), except where stated explicitly. The performance characteristics of the stain(s) cited in this report were developed and its performance characteristic determined by the Dermatopathology Laboratory at [facility], directed by Dr. Cristhian Aleman. These tests need not be, and therefore are not, approved by the [place] Food and Drug Administration. The tests are used for clinical purposes. Billing Codes Specimen Charges Stain Charges 75318 1 6:33 PM [facility] DERMATOPATHOLOGY LABORATORY Embedded Images 6:33 PM [facility] DERMATOPATHOLOGY LABORATORY Pathology/Cytolo gy TISSUE SPECIMEN FROM SKIN / Unknown 11/17/2020 3:33 AM BADGER DISTILLER OPERATOR 11/18/2020 5:31 AM BADGER DISTILLER OPERATOR us Gonzalo Tucker MD LAB - PATHOLOGY/CYTOLOGY ORDER SHERRELL Final Result DERMATOPATHOLOGY LABORATORY [facility] - Department of Dermatology [facility] [address] [place] [address], [address] [place] [address], [facility] [phone] documented in this encounter Visit Diagnoses Not on filedocumented in this encounter Care Teams Otr [employer] Driver Relationship Specialty Start Date End Date Hernan Michel MD [address] [place] [phone] PCP - General 01/29/18 documented as of this encounter
--- OUTSIDE RECORDS SUMMARY | 2025-05-06 13:49 | XMS_ITS | Clinical Summary ---
Author Organization [facility] Address [address] [place] [address] Care Team Providers Care Stitcher Feeder Name Role Phone Hernan Michel MD Primary Care Provider [phone] Source Comments [facility],non-owned Affiliates and Associated Physician Practices is amultiple site organization consisting of ambulatory clinics and hospital sitesin [place], [place], [place]. This disclosure is being madepursuant to the Care Everywhere program and may not contain all information available regarding this patient. Last updated 18.[facility] Allergies Active Allergy Reactions Criticality Noted Date Comments Sulfa Drugs Rash,Itching Medium 08/07/2019 Medications * Be aware that medications may not be up to date on this document. Alwaysverify current medications with the patient. lisinopril (PRINIVIL; ZESTRIL) 40 MG tablet 40 mg once daily 05/31/2019 Active metoprolol succinate XL 24hr (TOPROL XL) 25 MG tablet 25 mg once daily 06/05/2019 Active rosuvastatin (CRESTOR) 20 MG tablet 20 mg once daily 05/06/2019 Active aspirin (ASPIRIN) 81 MG tablet Take 162 mg by mouth once daily Active [place]-3 Fatty Acids (FISH OIL) 1000 MG capsule Take 2,000 mg by mouth once daily Active NIACIN PO Take by mouth once daily Active Loratadine (CLARITIN) 10 MG Take by mouth once daily Active HYDROcodone-acet aminophen (NORCO) 5-325 MG tablet Take 1 tablet by mouth every 4 hours as needed for Pain 25 tablet 09/19/2019 Active Active Problems No known active problems Social History Tobacco Use Types Packs/Day Years [...] on file Sexual Orientation Not on file Last Filed Vital Signs Vital Sign Reading Time Taken Comments Blood Pressure 174/93 10/16/2019 1:43 PM WARDROBE CUSTODIAN Pulse 71 10/16/2019 1:43 PM WARDROBE CUSTODIAN Temperature 36.2 C (97.1 F) 10/16/2019 1:43 PM WARDROBE CUSTODIAN Respiratory Rate 20 10/16/2019 1:43 PM WARDROBE CUSTODIAN Oxygen Saturation 98% 10/16/2019 1:43 PM WARDROBE CUSTODIAN Inhaled Oxygen Concentration - - Weight 106.1 kg (234 lb) 10/16/2019 1:43 PM WARDROBE CUSTODIAN Height 188 cm (6' 2) 10/16/2019 1:43 PM WARDROBE CUSTODIAN Body Mass Index 30.04 10/16/2019 1:43 PM WARDROBE CUSTODIAN Plan of Treatment Health Maintenance Due Date Last Done Comments COLOGUARD (AGES 45-75) - COL ON CA SCREENING 1957 COLON MONITORING 1957 COLONOSCOPY - COLON CA SCREENING 1957 CT COLONOGRAPHY - COLON CA SCREENING 1957 Colorectal Cancer Screening 1957 FIT - COLON CA SCREENING 1957 FLEX SIG - COLON CA SCREENING 1957 HEPATITIS C SCREENING 06/09/1975 DTAP/TDAP/TD VACCINES (1 - Tdap) 1976 PNEUMOCOCCAL VACCINE 50+ (1 of 1 - PCV) 2007 ZOSTER VACCINE (1 of 2) 2007 SCREENING FOR DIABETES 08/07/2019 COVID-19 VACCINE ( - 2023-2 5 season) 2024 DEPRESSION SCREENING 10/15/2024 INFLUENZA VACCINE (#1) 2025 Respiratory Syncytial Virus (RSV) Vaccine Pt: or over 60 yrs (1 - 1-dose 75+ series) 2032 HEPATITIS B VACCINE Aged Out No longe r eligible based on patient's age to complete this topic HIB VACCINE Aged Out No longer eligi ble based on patient's age to complete this topic HPV VACCINE Aged Out No longer eligi ble based on patient's age to complete this topic MENINGOCOCCAL (Group B) VACC INE SHARED DECISION-MAKING Aged Out No longer eligibl e based on patient's age to complete this topic MENINGOCOCCAL GROUPS A/C/Y/W VACCINE Aged Out No longer eligible b ased on patient's age to complete this topic Medical Devices Implanted Type Area Director Advanced Device Identifier Shelf Expiration Date Model / Serial / Lot Mesh Srg 3dmax 7x5in Xl 3d Crv Contr Sl Implanted:Qty: 1 on 09/19/2019 by Yordy Webb MD at [facility] [place] [employer] 04/11/2024 [id number] / / [id number] Insurance [facility] Care Teams Stitcher Feeder Relationship Specialty Start Date End Date Hernan Michel MD [address] [place] [address] PCP - General 01/29/18
--- OUTSIDE RECORDS SUMMARY | 2025-05-06 13:49 | XMS_ITS | Encounter Summary ---
Author Organization [facility] Address [address] [place] [address] Care Team Providers Care Carbon Paper Coating Machine Setter Name Role Phone Hernan Michel MD Primary Care Provider [phone] Encounter Details Date Type Department Care Team (Late st Contact Info) Description 04/26/2018 Lab Requisition [facility] [address] [place] [phone] Lars Mukherjee MD RETIRED Social History Tobacco Use Types Packs/Day Years Used Date Smoking Tobacco: Never Assessed Sex and Gender Information Value Date Recorded Sex Assigned at Not on file Legal Sex Male 5:59 PM CDT Gender Identity Not on file Sexual Orientation Not on file documented as of this encounter Plan of Treatment Not on file documented as of this encounter Procedures Procedure Name Priority Date/Time Associated Diagnosis Comments DERMATOPATHOLOGY Routine 04/25/2018 12:0 0 AM CDT documented in this encounter Results * DERMATOPATHOLOGY (04/25/2018 12:00 AM CDT) Case Report Dermatopathology Report Case: [id number] Authorizing Provider: Lars Mukherjee MD Collected: 04/25/2018 12:00 AM Pathologist: Nicole Alvarenga MD Received: 04/26/2018 12:36 PM Specimens: A) - Skin, left scapula B) - Skin, interscapular 8 12:22 PM CDT DERMATOPATHOLOGY LABORATORY Final Diagnosis Specimen A. SKIN, left scapula: ULCER WITH SUPERFICIAL DERMAL NECROSIS (L98.499) (see microscopic description and comment) Specimen B. SKIN, interscapular: BENIGN VERRUCOUS KERATOSIS, INFLAMED (L82.1) 12:22 PM T DERMATOPATHOLOGY LABORATORY at 1222 CDT Clinical History A-B: SK 12:22 PM CDT DERMATOPATHOLOGY LABORATORY Gross Description Specimen A: Received is one formalin filled container labeled with the patient's name and designated left scapula. The specimen consists of a shave biopsy measuring 9x6x1 mm. Jar 0. Specimen B: Received is one formalin filled container labeled with the patient's name and designated interscapular. The specimen consists of a shave biopsy measuring 84s96v9 mm. Jar 0. 12:22 PM CDT DERMATOPATHOLOGY LABORATORY Microscopic Description Specimen A. SKIN, left scapula: There is an ulcer, beneath which there are vascular proliferation, fibroblasts, and an edematous stroma. There is minimal dermis present for evaluation. COMMENT: Only very focal epidermis is seen, which has mild keratinocytic atypia. While this may be reactive, an eroded actinic keratosis cannot be excluded. Clinicopathologic correlation is recommended. Specimen B. SKIN, interscapular: Sections show hyperkeratosis, papillomatosis, hypergranulosis, and acanthosis. Inflammatory cells are present within the dermis. These histological findings can be seen in a verruca vulgaris or a seborrheic keratosis. 12:22 PM T DERMATOPATHOLOGY LABORATORY Disclaimer An external and internal positive and negative controls are appropriate for the histochemical, immunohistochemical and immunofluorescence stain(s) in this case (if any), except where stated explicitly. The performance characteristics of the stain(s) cited in this report were developed and its performance characteristic determined by the Dermatopathology Laboratory at [facility]. These tests need not be, and therefore are not, approved by the [place] Food and Drug Administration. The tests are used for clinical purposes. Billing Codes Specimen Charges Stain Charges 72537 [id number] 1 1 8 12:22 PM CDT DERMATOPATHOLOGY LABORATORY Embedded Images 12:22 PM CDT DERMATOPATHOLOGY LABORATORY Pathology/Cytology TISSUE SPECIMEN FROM SKIN / Unknown 04/25/2018 04/26/2018 12:36 PM CDT Miscellaneous samples (specimen) TISSUE SPECIMEN FROM SKIN / Unknown 04/25/2018 04/26/2018 12:36 PM CDT Lars Mukherjee MD LAB - PATHOLOGY/CYTOLOGY ORD ERABLES Final Result DERMATOPATHOLOGY LABORATORY [facility] - Department of Dermatology [address] [place] [address] 5th Floor Lab [address] [phone] documented in this encounter Visit Diagnoses Not on filedocumented in this encounter Care Teams Carbon Paper Coating Machine Setter Relationship Specialty Start Date End Date Hernan Michel MD [address] [place] [id number] PCP - General 01/29/18 documented as of this encounter
== END 2025-05-06 13:46 | disposition home or self-care (01) ==
PROVIDERS: PCP Internal Medicine; Visit Provider Plastic Surgery
DX: M18.12 Unilateral primary osteoarthritis of first carpometacarpal joint, left hand (principal)
CPT/HCPCS: 73130

== ENCOUNTER 2025-09-01 10:43 | Outpatient (CLI) | payer MEDICARE, SELFPAY ==
--- NOTE | ~2025-09-01 | XR_ITS ---
EXAMINATION: XR hand RT min 3V, 09/01/2025 11:00 ANIMAL CARE ASSISTANT HISTORY: R20.0 - Anesthesia of skin, PAIN IN THUMB COMPARISON: No comparisons available. Findings: No acute fracture or malalignment. No significant degenerative changes. Soft tissues unremarkable. Impression: No acute fracture or malalignment. Reviewed, dictated and finalized at location P. AL CARE ASSISTANT Impression: No acute fracture or malalignment.
== END 2025-09-01 10:44 | disposition home or self-care (01) ==
PROVIDERS: PCP Internal Medicine; Visit Provider Plastic Surgery
DX: R20.0 Anesthesia of skin (principal); R20.2 Paresthesia of skin
CPT/HCPCS: 73130